=== PATIENT | female | born 1930 | race Caucasian/White ===

== ENCOUNTER 2018-02-04 17:35 | Emergency (ER) | payer OTHER ==
[~2018-02-04 17:35] MED LIST: ACETAMINOPHEN325 M2 PO; ASPIRIN81 M1 PO; BACTRIM DS 8001 TA1 PO; CALCIUM 500 +1 EAC3 PO; COLACE100 MG PO; COREG3.125 MG PO; COREG6.25 MG PO; COUMADIN2.5 M1 PO; COUMADIN2.5 MG PO; COUMADIN5 M2 PO; COUMADIN5 MG PO; Coumadin7.5 MG PO; FUROSEMIDE40 MG PO; HYDROCODONE BIT1 T11 PO; JANTOVEN2.5 MG PO; JANTOVEN5 MG PO; LASIX20 MG PO; LASIX40 MG PO; LIDODERM 5% PATC1 EA T; LIPITOR10 MG PO; LISINOPRIL2.5 MG PO; LISINOPRIL5 MG PO; MIRALAX POWDER17 G1 PO; MIRALAX17 GM/DOSE PO; NORFLEX100 MG PO; PERCOCET 325 MG1 TA2 PO; PERCOCET 325 MG1 TA7 PO; PREDNICOT20 MG PO; ROCEPHIN1 GM/50 M1 IV; ULTRAM50 MG PO; VITAMIN B12500 MCG PO
== END 2018-02-04 17:46 | disposition expired ==
LOC: ED 17:35
DX: I46.9 Cardiac arrest, cause unspecified (principal); M19.90 Unspecified osteoarthritis, unspecified site; J44.9 Chronic obstructive pulmonary disease, unspecified; I50.9 Heart failure, unspecified; Z88.0 Allergy status to penicillin; Z79.02 Long term (current) use of antithrombotics/antiplatelets